=== PATIENT | male | born 1975 | race Caucasian/White ===

== ENCOUNTER 2024-04-23 13:39 | Emergency (ER) | payer BC ==
[2024-04-23 14:12] LABS: BASOPHILS PERCENT AUTO 0.5 % (0.0-1.0); EOSINOPHILS PERCENT AUTO 3.6 % (1.0-3.0); HEMOGLOBIN 16.2 g/dL (14.0-18.0); LYMPHOCYTES PERCENT AUTO 17.9 % (20.5-50.1); MEAN CORPUSCULAR HEMOGLOBIN 32.6 pg (27.0-34.0); MEAN CORPUSCULAR HGB CONC 33.8 g/dL (33.0-35.0); MEAN CORPUSCULAR VOLUME 96.6 fL (80-100); MONOCYTES PERCENT AUTO 11.8 % (2-8); NEUTROPHILS PERCENT AUTO 66.2 % (42.2-75.2); PLATELET COUNT,PLT 197 10^3/uL (150-450); RED BLOOD CELL COUNT 4.97 10^6/uL (4.6-6.2); WHITE BLOOD CELL COUNT,WBC 7.5 10^3/uL (5.0-10.0)
[2024-04-23 14:16] LABS: APPEARANCE,URINE CLEAR (CLEAR); BILIRUBIN,URINE NEGATIVE (NEGATIVE); COLOR,URINE YELLOW (YELLOW); GLUCOSE,URINE NEGATIVE (NEGATIVE); KETONES,URINE NEGATIVE (NEGATIVE); LEUKOCYTE ESTERASE,URINE NEGATIVE (NEGATIVE); NITRITE,URINE NEGATIVE (NEGATIVE); OCCULT BLOOD,URINE NEGATIVE (NEGATIVE); PH,URINE 6.5 (5.0-9.0); PROTEIN,URINE NEGATIVE (NEGATIVE); UROBILINOGEN,URINE 0.2 mg/dL (0.2-1.0)
[2024-04-23 14:33] LABS: A/G RATIO 1.1; ANION GAP 13.6 mEq/L (7-13); BILIRUBIN TOTAL 0.8 mg/dL (0.2-1.0); BUN/CREATININE RATIO 10.4 (No establ ref range); CALCIUM 9.1 mg/dL (8.5-10.1); CREATININE 1.15 mg/dL (0.70-1.30); EST CRCL DRUG DOSING (CG) 83.41 mL/min; MAGNESIUM 2.2 mg/dL (1.8-2.4); POTASSIUM,K 4.6 mmol/L (3.5-5.1); PROTEIN TOTAL,TP 7.7 g/dL (6.4-8.2)
[2024-04-23] MEDS: Iopamidol 755 Mg/ML 100 ML Bottle IVPUSH ONE (14:51)
[2024-04-23] MEDS: Lactated Ringers 1,000 ML IV ONE (14:53)
== END 2024-04-23 16:10 | disposition home or self-care (01) ==
LOC: DL.ED 13:39
DX: J10.1 Influenza due to other identified influenza virus with other respiratory manifestations (principal); E86.9 Volume depletion, unspecified; R79.89 Other specified abnormal findings of blood chemistry
CPT/HCPCS: 36415; 71046; 71275; 80053; 81003; 83735; 84484; 85025; 85379; 87081; 87428-QW; 87430; 93005; 96360; 99284-25; J7120; Q9967